=== PATIENT | female | born 1990 | race African-American/Black ===

== ENCOUNTER 2017-02-09 12:08 | Emergency (ER) | payer MEDICAID ==
[~2017-02-09] VITALS: Ht 170.2 cm; Wt 108.0 kg
[2017-02-09 12:09] VITALS: BP 129/73; PULSE 90; RESP 20; TEMP 98.6; O2SAT 99
[2017-02-09] MEDS ORDERED: SE-NCHW CHEW (14:32)
--- NOTE | 2017-02-09 14:42 | PD ---
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 Patient is a G1, P0. Her last menstrual cycle was November 19, 2016. She states she is approximately 12 weeks . Patient is unsure her blood type. She states she does follow- up with an soldering machine tender and had an ultrasound approximate 2 weeks ago. She denies any complications. She states she has had some spotting earlier in the . She states that it was not enough this time to soak a pad. She only had bleeding with wiping after urinating. She denies any bleeding at this time. No abdominal pain or cramping. No abnormal vaginal discharge. Patient denies any fevers or chills. No nausea or vomiting. No other complaints. PFSH Past Medical History Tetanus Vaccination: > 5 Years ?: LMP: 11/19/16 : 1 Para: 0 Social History Alcohol Use: No Tobacco Use: No Substance Use: No Allergies-Medications (Allergen,Severity, Reaction): Coded Allergies: No Known Allergies (Unverified , 02/09/17) Reported Meds & Prescriptions Reported Meds & Active Scripts Active Reported Se- 19 29-1 mg Chew ( Vit W/ Ferrous Fumara Chew) 1 Chew 1 Tab CHEW DAILY Review of Systems Except as stated in HPI: all other systems reviewed are Neg Physical Exam Narrative GENERAL: Well-nourished, well-developed female patient, ambulatory. Afebrile. SKIN: Focused skin assessment warm/dry. HEAD: Normocephalic. Atraumatic. EYES: No scleral icterus. No injection or drainage. NECK: Supple, trachea midline. No JVD or lymphadenopathy. CARDIOVASCULAR: Regular rate and rhythm without murmurs, gallops, or rubs. RESPIRATORY: Breath sounds equal bilaterally. No accessory muscle use. Lungs sounds are clear to auscultation. GASTROINTESTINAL: Abdomen soft, non-tender, nondistended. MUSCULOSKELETAL: No cyanosis, or edema. BACK: Nontender without obvious deformity. No CVA tenderness. Data Data Last Documented VS Vital Signs Date Time Temp Pulse Resp B/P (MAP) Pulse Ox O2 Delivery O2 Flow Rate FiO2 02/09/17 12:09 98.6 90 20 129/73 (91) 99 Room Air Orders Orders Ed Urine Pregnancytest Poc (02/09/17 14:28) Beta Hcg (Quant/Titer) (02/09/17 14:41) Complete Blood Count With Diff (02/09/17 14:41) Basic Metabolic Panel (Bmp) (02/09/17 14:41) Urinalysis - C+S If Indicated (02/09/17 14:41) Complete Rh (02/09/17 14:41) Ed Poc Ultrasound (02/09/17 ) Labs Laboratory Tests Test 02/09/17 15:00 White Blood Count 8.6 TH/MM3 Red Blood Count 4.25 MIL/MM3 Hemoglobin 11.1 GM/DL Hematocrit 35.2 % Mean Corpuscular Volume 82.7 FL Mean Corpuscular Hemoglobin 26.1 PG Mean Corpuscular Hemoglobin Concent 31.6 % Red Cell Distribution Width 14.0 % Platelet Count 187 TH/MM3 Mean Platelet Volume 8.8 FL Neutrophils (%) (Auto) 73.7 % Lymphocytes (%) (Auto) 18.8 % Monocytes (%) (Auto) 6.5 % Eosinophils (%) (Auto) 0.8 % Basophils (%) (Auto) 0.2 % Neutrophils # (Auto) 6.3 TH/MM3 Lymphocytes # (Auto) 1.6 TH/MM3 Monocytes # (Auto) 0.6 TH/MM3 Eosinophils # (Auto) 0.1 TH/MM3 Basophils # (Auto) 0.0 TH/MM3 CBC Comment DIFF FINAL Differential Comment Urine Color YELLOW Urine Turbidity CLEAR Urine pH 6.5 Urine Specific [place] 1.021 Urine Protein NEG mg/dL Urine Glucose (UA) NEG mg/dL Urine Ketones NEG mg/dL Urine Occult Blood MOD Urine Nitrite NEG Urine Bilirubin NEG Urine Urobilinogen LESS THAN 2.0 MG/DL Urine Leukocyte Esterase TRACE Urine RBC 1 /hpf Urine WBC 1 /hpf Urine Squamous Epithelial Cells 1 /hpf Microscopic Urinalysis Comment CULT NOT INDICATED Blood Urea Nitrogen 5 MG/DL Creatinine 0.63 MG/DL Random Glucose 81 MG/DL Calcium Level 8.4 MG/DL Sodium Level 138 MEQ/L Potassium Level 3.8 MEQ/L Chloride Level 106 MEQ/L Carbon Dioxide Level 23.4 MEQ/L Anion Gap 9 MEQ/L Estimat Glomerular Filtration Rate 139 ML/MIN Human Chorionic Gonadotropin, Quant 93987 MIU/ML MDM Medical Decision Making Medical Screen Exam Complete: Yes Emergency Medical Condition: Yes Medical Record Reviewed: Yes Differential Diagnosis Threatened AB versus placenta previa versus UTI Narrative Course 27-year-old female presents to the emergency department for evaluation of episode of vaginal bleeding that occurred this morning. She states the bleeding has stopped. She has no other symptoms. CBC, BMP, beta hCG, UA, urine test, complete Rh are ordered and pending. UPT is positive. CBC shows no acute abnormality. BMP shows no acute abnormality. Beta HCG 40, 619. UA is negative for acute infection. Blood type is A positive. POC US shows intrauterine fetus, moving on exam, HR 176. Patient is stable for discharge to follow-up with her soldering machine tender. She verbalizes agreement and understanding. The patient was discharged in stable condition with instructions, including return instructions and follow up instructions. Diagnosis Primary Impression: Intrauterine Referrals: Temporary Receptionist call for appointment Patient Instructions: First Trimester (ED), General Instructions Additional Instructions: Follow-up with your soldering machine tender. Return to the emergency department for any acute worsening of symptoms. Med/Other Pt SpecificInfo: No Change to Meds Disposition: 01 DISCHARGE HOME Condition: Stable Jimena Dubose Feb 09, 2017 14:42
[2017-02-09 15:32] LABS: AUTOMATED NEUTROPHIL # 6.3 TH/MM3 (1.8-7.7); BASOPHIL % 0.2 % (0.0-2.0); EOSINOPHIL # 0.1 TH/MM3 (0-0.4); EOSINOPHIL % 0.8 % (0.0-4.0); HEMATOCRIT 35.2 % (35.0-46.0); HEMO FLAGS DIFF FINAL; LYMPH % 18.8 % (9.0-44.0); LYMPHOCYTE # 1.6 TH/MM3 (1.0-4.8); MEAN CELL VOLUME 82.7 FL (80.0-100.0); MEAN CORPUSCULAR HEMOGLOBIN 26.1 PG (27.0-34.0); MEAN CORPUSCULAR HGB CONC 31.6 % (32.0-36.0); MONO % 6.5 % (0.0-8.0); NEUT % 73.7 % (16.0-70.0); PLATELET COUNT 187 TH/MM3 (150-450); RED BLOOD COUNT 4.25 MIL/MM3 (4.00-5.30); WHITE BLOOD COUNT 8.6 TH/MM3 (4.0-11.0)
[2017-02-09 15:38] LABS: BLOOD, URINE MOD (NEG); GLUCOSE,URINE NEG (NEG); KETONE, URINE NEG (NEG); NITRITE,URINE NEG (NEG); PH, URINE 6.5 (5.0-8.5); SQUAMOUS EPITHELIAL CELL URINE 1 /hpf (0-5); URINE COLOR YELLOW (YELLW/STRAW)
[2017-02-09 15:41] LABS: COMMENT (UR) CULT NOT INDICATED; CULTURE IF INDICATED CULT NOT INDICATED
[2017-02-09 15:44] LABS: BICARBONATE 23.4 MEQ/L (21.0-32.0); POTASSIUM 3.8 MEQ/L (3.5-5.1)
--- NOTE | 2017-02-09 16:06 | PD ---
Data Data Last Documented VS Vital Signs Date Time Temp Pulse Resp B/P (MAP) Pulse Ox O2 Delivery O2 Flow Rate FiO2 02/09/17 12:09 98.6 90 20 129/73 (91) 99 Room Air Orders Orders Ed Urine Pregnancytest Poc (02/09/17 14:28) Beta Hcg (Quant/Titer) (02/09/17 14:41) Complete Blood Count With Diff (02/09/17 14:41) Basic Metabolic Panel (Bmp) (02/09/17 14:41) Urinalysis - C+S If Indicated (02/09/17 14:41) Complete Rh (02/09/17 14:41) Ed Poc Ultrasound (02/09/17 ) Labs Laboratory Tests Test 02/09/17 15:00 White Blood Count 8.6 TH/MM3 Red Blood Count 4.25 MIL/MM3 Hemoglobin 11.1 GM/DL Hematocrit 35.2 % Mean Corpuscular Volume 82.7 FL Mean Corpuscular Hemoglobin 26.1 PG Mean Corpuscular Hemoglobin Concent 31.6 % Red Cell Distribution Width 14.0 % Platelet Count 187 TH/MM3 Mean Platelet Volume 8.8 FL Neutrophils (%) (Auto) 73.7 % Lymphocytes (%) (Auto) 18.8 % Monocytes (%) (Auto) 6.5 % Eosinophils (%) (Auto) 0.8 % Basophils (%) (Auto) 0.2 % Neutrophils # (Auto) 6.3 TH/MM3 Lymphocytes # (Auto) 1.6 TH/MM3 Monocytes # (Auto) 0.6 TH/MM3 Eosinophils # (Auto) 0.1 TH/MM3 Basophils # (Auto) 0.0 TH/MM3 CBC Comment DIFF FINAL Differential Comment Urine Color YELLOW Urine Turbidity CLEAR Urine pH 6.5 Urine Specific [place] 1.021 Urine Protein NEG mg/dL Urine Glucose (UA) NEG mg/dL Urine Ketones NEG mg/dL Urine Occult Blood MOD Urine Nitrite NEG Urine Bilirubin NEG Urine Urobilinogen LESS THAN 2.0 MG/DL Urine Leukocyte Esterase TRACE Urine RBC 1 /hpf Urine WBC 1 /hpf Urine Squamous Epithelial Cells 1 /hpf Microscopic Urinalysis Comment CULT NOT INDICATED Blood Urea Nitrogen 5 MG/DL Creatinine 0.63 MG/DL Random Glucose 81 MG/DL Calcium Level 8.4 MG/DL Sodium Level 138 MEQ/L Potassium Level 3.8 MEQ/L Chloride Level 106 MEQ/L Carbon Dioxide Level 23.4 MEQ/L Anion Gap 9 MEQ/L Estimat Glomerular Filtration Rate 139 ML/MIN Human Chorionic Gonadotropin, Quant [id number] MIU/ML MDM Supervised Visit with FAYE: Yes Narrative Course The history, exam, and medical decision-making in the associated midlevel provider note were completed with my assistance. I reviewed and agree with the findings presented. I attest that I had a [id number] encounter with the patient on the same day, and personally performed and documented my assessment and findings in the medical record. *My assessment and Findings: This is a 27 year old female who presents to the emergency department with bleeding in the setting of early . Patient is 12 weeks by ultrasound performed by her granular operator. Her labs are reassuring. [id number] ultrasound demonstrates an intrauterine with a normal heart rate. I think patient can safely be discharged to follow up with her primary granular operator. Procedures Procedure Narrative Point of care ultrasound: Intrauterine with a heart rate 176 Karishma Edmond MD Feb 09, 2017 16:06
[2017-02-09 16:15] VITALS: BP 124/76; TEMP 98.1
== END 2017-02-09 16:15 | disposition home or self-care (01) ==
LOC: NEPD 12:08
DX: O20.9 Hemorrhage in early pregnancy, unspecified (principal); Z3A.12 12 weeks gestation of pregnancy
CPT/HCPCS: 80048; 81001; 84702; 84703; 85025; 86901; 99285